=== PATIENT | female | born 1985 | race Two or more races ===

== ENCOUNTER → 2018-09-26 | Outpatient (CLI) | payer SELFPAY ==
[2018-09-26 10:40] VITALS: BP 93/59
[2018-09-26 11:40] VITALS: BP 96/63
== END | disposition home or self-care (01) ==
LOC: Rad HDHVI 10:34
PROVIDERS: ATTEND Internal Medicine
DX: I07.1 Rheumatic tricuspid insufficiency (principal); Q21.1 Atrial septal defect
CPT/HCPCS: 93306; G0463